=== PATIENT | female | born 1950 | race Caucasian/White ===

== ENCOUNTER 2021-06-11 10:33 | Outpatient (REF) | payer MEDICARE, SELFPAY ==
--- NOTE | ~2021-06-11 | MM_ITS ---
EXAMINATION: MM SCREENING DIGITAL BREAST TOMOSYNTHESIS, BILATERAL CLINICAL INFORMATION: Screening. Asymptomatic. The lifetime risk of breast cancer based on the Tyrer-Cuzick Model is 7.4%. COMPARISON: Mammography: December 19, 2018 and studies dating back to August 21, 2013 TECHNIQUE: Digital breast tomosynthesis is performed in both the craniocaudal and mediolateral oblique views along with computer-aided detection (CAD). Synthesized 2D images are generated from the tomosynthesis. FINDINGS: There are scattered areas of fibroglandular density (ACR BI-RADS breast composition Category b). There are no significant masses, abnormal calcifications, or other abnormalities. MM/MM tomosynthesis screening BI IMPRESSION: There are no significant changes from prior study. ASSESSMENT: BI-RADS 1: Negative RECOMMENDATION: Routine annual mammography screening. This patient's information was entered into a reminder system with a target due date for their next mammogram.
== END 2021-06-11 10:34 | disposition home or self-care (01) ==
LOC: HO.MAMMO 10:33
PROVIDERS: Visit Provider Family Medicine
DX: Z12.31 Encounter for screening mammogram for malignant neoplasm of breast (principal)
CPT/HCPCS: 77063; 77067

== ENCOUNTER 2022-07-14 11:28 | Outpatient (REF) | payer MEDICARE, SELFPAY ==
--- NOTE | ~2022-07-14 | MM_ITS ---
EXAMINATION: MM SCREENING DIGITAL BREAST TOMOSYNTHESIS, BILATERAL CLINICAL INFORMATION: Screening. Asymptomatic. The lifetime risk of breast cancer based on the Tyrer-Cuzick Model is 7%. COMPARISON: Mammography: 06/11/2021, 12/19/2018, 12/02/2017 TECHNIQUE: Digital breast tomosynthesis is performed in both the craniocaudal and mediolateral oblique views along with computer-aided detection (CAD). Synthesized 2D images are generated from the tomosynthesis. FINDINGS: There are scattered areas of fibroglandular density (ACR BI-RADS breast composition Category b). There are no significant masses, abnormal calcifications, or other abnormalities. Parenchymal pattern is similar to prior studies. There is no developing density or architectural abnormality. The axilla and skin contours are unremarkable. No significant changes. MM/MM tomosynthesis screening BI IMPRESSION: No mammographic evidence of malignancy. ASSESSMENT: BI-RADS 1: Negative RECOMMENDATION: Routine annual mammography screening. This patient's information was entered into a reminder system with a target due date for their next mammogram.
== END 2022-07-14 11:29 | disposition home or self-care (01) ==
LOC: HO.MAMMO 11:28
PROVIDERS: Visit Provider Family Medicine
DX: Z12.31 Encounter for screening mammogram for malignant neoplasm of breast (principal)
CPT/HCPCS: 77063; 77067

== ENCOUNTER 2023-07-18 10:17 | Outpatient (REF) | payer MEDICARE, SELFPAY | END 2023-07-18 10:18 | disposition home or self-care (01) | LOC: HO.MAMMO 10:17 | PROVIDERS: PCP Family Medicine; Visit Provider Family Medicine | DX: Z12.31 Encounter for screening mammogram for malignant neoplasm of breast (principal) | CPT/HCPCS: 77063; 77067 ==

== ENCOUNTER → 2023-07-18 10:30 | Outpatient (BNV) | payer MEDICARE, SELFPAY | PROVIDERS: PCP Family Medicine; Visit Provider Radiology Diagnostic Radiology | DX: Z12.31 Encounter for screening mammogram for malignant neoplasm of breast (principal) | CPT/HCPCS: 77063; 77067 ==

== ENCOUNTER 2024-07-20 10:29 | Outpatient (REF) | payer MEDICARE, SELFPAY ==
--- NOTE | ~2024-07-20 | MM_ITS ---
EXAMINATION: MM SCREENING DIGITAL BREAST TOMOSYNTHESIS, BILATERAL CLINICAL INFORMATION: Screening. Asymptomatic. COMPARISON: Mammography: Comparison is made with available priors TECHNIQUE: Digital breast mammography with tomosynthesis is performed in both the craniocaudal and mediolateral oblique views along with computer-aided detection (CAD). FINDINGS: There are scattered areas of fibroglandular density (ACR BI-RADS breast composition Category b). There are no significant masses, abnormal calcifications, or other abnormalities. MM/MM tomosynthesis screening BI IMPRESSION: No mammographic evidence of malignancy. ASSESSMENT: BI-RADS BI-RADS 1 - Negative RECOMMENDATION: Routine annual mammography screening. 1 year F/U This examination should not preclude the clinical evaluation of a suspicious palpable abnormality. This patient's information was entered into a reminder system with a target due date for their next mammogram. Electronically signed by: Svetlana Cardenas DO 07/26/2024 12:17 PM SERGIO
--- OUTSIDE RECORDS SUMMARY | 2024-07-25 07:22 | XMS_ITS ---
Author Organization [facility] Address [address] [place] [address] Care Team Providers Care Machine Engineer Name Role Phone Melia Mreino Primary Care Provider Unavailab Melia Gaines Unavailable [phone] REASON FOR VISIT RX for Pt Encounters Encounter Location Date Provider Diagnosis [address] [address] 07/06/2024 Melia Cabrera Plan Of Treatment No Information Progress Notes * Georgia WALLERDOB: [birth year] (74 yo F)Acc No.[id number]:07/06/2024 Patient:?Georgia WALLER :1950???Age:74 Y???Sex:Female Address:[address] [place], [address] * true * Date:? Generated for Printi ng/Famaryamg/eTransmitting on:?07/25/2024 07:22 AM EST
--- OUTSIDE RECORDS SUMMARY | 2024-07-25 07:23 | XMS_ITS ---
[facility] Address [address] [place] [address] Care Team Providers Care Regional Hr Manager Name Role Phone Melia Merino Primary Care Provider Unavailab Melia Gaines Unavailable [phone] Allergies Allergen (clinical drug ingredient) Drug/Non Drug Allergy documented on EMR Reaction Allergy Type Onset Date Status Lactose (Allergy) stomach upset Allergy Active REASON FOR VISIT Post-op Medications Medication SIG (Take, Route, Frequency, Duration) Notes Start Date End Date Status Rytary 23.75-95 MG 1 capsule Orally Thr ee times a day Active Ammonium Lactate 12 % 1 application Externally to affected areas of skin to feet except for between the toes Twice a day for 30 days Active Tylenol Active Propranolol HCl 60 MG as directed Orally Not-Taking rOPINIRole HCl 4 MG 1 tablet Orally Thre e times a day Not-Taking Azilect 1 MG Orally Once a day Active Pancreaze 20753 UNIT Orally Active AmLactin 12 % 1 application Externally Twice a day for 90 days 03/29/2022 Active Amantadine HCl 100 MG Orally Twice a day Active Allopurinol 100 MG Orally Once a day Active Diclofenac Sodium 1 % as directed Externally Active Carbidopa 25 MG 1 tablet Orally Thre e times a day Active Calcium 600+D3 Activ e Vitamin D3 125 MCG (5000 UT) 1 capsule Orally Once a day Active Celecoxib 100 MG 1 capsule with food Orally Once a day Active Omeprazole 20 MG 1 capsule 30 minutes before morning meal Orally Once a day Active Pramipexole Dihydrochloride 0.5 MG 1 tablet Orally Once a day Active Potassium Citrate ER 10 MEQ (1080 MG) 1 tablet with meals Orally Three times a day Active Social History Tobacco Use: Social History Observation Description Date Details (start date - stop date) Never Smoker NA - NA Tobacco Use/Smoking Question Answer Notes Are you a: nonsmoker Additional Findings: Tobacco Non-User Current no n-smoker Tobacco use other than smoking: Question Answer Notes Are you an other tobacco user? No Problems Problem Type SNOMED Code ICD Code Onset Dates Problem Status W/U Status Risk Notes Problem Acquired hallux valgus (46904920) Hallux valgus (acquired), left foot (M20.12) Active confirmed Vital Signs Height 5ft in 06/05/2024 Weight 115 lbs 06/05/2024 BMI 22.46 kg/m2 06/05/2024 Blood pressure systolic 110 mm Hg 06/05/20 24 Blood pressure diastolic 70 mm Hg 024 Encounters Encounter Location Date Provider Diagnosis [facility] [place] [address] [place] [address] 06/05/2024 Melia Cabrera Primary osteoarthrit is of left foot M19.072 and Hallux valgus (acquired), left foot M20.12 Assessments Encounter Date Diagnosis (ICD Code) Assessment Notes Treatment Notes Treatment Clinical Notes Section Notes 06/05/2024 Primary osteoarthritis of left foot (ICD-10 - M19.072) 06/05/2024 Hallux valgus (acquired), left foot (ICD-10 - M20.12) Plan Of Treatment Next Appt Details Follow Up: 2 Weeks, Reason: Procedure Notes * Category Sub-Category Detail Notes Dressing Change: Type: dry sterile anh ssing , incorporating digital splintage to maintain position , a light compressive dressing Topical: bacitacin applied Removal of: sutures performed wi th sterile forceps/suture scissors or #15 blade, area cleaned with alcohol prior to removal Progress Notes * Georgia WALLERDOB: [birth year] (74 yo F)Acc No.[id number]:06/05/2024 Progress Notes Patient:?Georgia Waller Provider:?Melia Cabrera DPM :1950???Age:74 Y???Sex:Female D ate:06/05/2024 Address:[address] [place], [place] [id number] Pcp:Melia Merino Subjective: * Chief Complaints: * ???Post-op * HPI: ???Post-op:?The patient presents for post-op of?Left Mod Collazo , Bunionectomy.?Date of Surgery?:?05/23/2024 ?Current symptoms include?Pt denies fever, chills, nausea, calf pain, SOB, or increased anxiety, Pt states pain under control.? Pt presents WB with surgical shoe, relates some increased pain in last couple days, but admits has not been staying off of foot like recommeneded. * ROS:?General/Constitutional:?Nausea?denies, denies.?Vomiting?denies, denies.?Hunger Thirst?denies, denies.?Loss appetite?denies, denies.?Chills?denies, denies.?Fatigue?denies, denies.?Fever?denies, denies.?Night Sweats denies, denies.?Unexplained weight loss?denies, denies.?Unexplained weight gain?denies, denies.?HEENTM:?Dentures?denies, denies.?Dizziness?denies, denies.?Glasses/contacts?denies, denies.?Retinopathy?denies, denies.?Blurred/double vision?denies, denies.?TMJ?denies, denies.?Discharge/drainage?denies, denies.?Implants?denies, denies.?Sore throat?denies, denies.?Dental implants?denies, denies.?Hard of hearing ?denies, denies.?Difficulty chewing/swallowing/speaking?denies, denies.?Nose bleeds?denies, denies.?Sore mouth?denies, denies.?Respiratory:?On Oxygen?denies, denies.?Pneumonia/pleurisy?denies, denies.?Bronchitis?denies, denies.?Emphysema?denies, denies.?Coughing?denies, denies.?Cough blood?denies, denies.?Shortness of breath?denies, denies.?Wheezing?denies, denies.?Cardiovascular:?Pacemaker?denies, denies.?MVP?denies, denies.?WPW?denies, denies.?CHF?denies, denies.?Heart attack?denies, denies.?Septal defect?denies, denies.?Rapid beat?denies, denies.?Chest pain ?denies, denies.?Atrial Fib.?denies, denies.?Murmur/Palpitations?denies, denies.?Gastrointestinal:?Hemorrhoids?denies, denies.?Stomach/Abdominal pain?admits, admits.?Dark blood stool?denies, denies.?Irritable bowel ?admits, admits.?Constipation?denies, denies.?Diarrhea?admits, admits.?Hematology:?Swelling?denies, denies.?Clots?denies, denies.?Varicose Veins?denies, denies.?Bruising?denies, denies.?Bleeding problem?denies, denies.?Genitourinary:?Blood urine?denies, denies.?Frequent/Painfu/urination/bladder control?denies, denies.?Kidney stones?admits, admits.?Infection (UTI)?denies, denies.?Nephropathy?admits, admits.?sex trans dis (STD)?denies, denies.?Prostate?denies, denies.?Musculoskeletal:?Hammertoes?admits, admits.?Bunions?admits, admits.?Back Pain?denies, denies.?Muscle Cramps/ Resting?denies, denies.?Muscle cramps / walking?denies, denies.?Generalized aches and pains?admits, admits.?Weakness?denies, denies.?Integ.:?Horan?denies, denies.?Scars?denies, denies.?Corns/calluses?admits, admits.?Ingrown nails?denies, denies.?Painful nails?denies, denies.?Open Sores?denies, denies.?Rashes?denies, denies.?Neurologic:?Difficulty sleeping?admits, admits.?Brain disorder?denies, denies.?Numbness?denies, denies.?Balance trouble?denies, denies.?Confusion?denies, denies.?Fainting/blackouts?denies, denies.?Tingling?denies, denies.?Tremors?admits, admits.? * Medical History:? * Surgical History:?Appendecto my 1976Whipple Procedure 2010Bunionectomy - Right 2007[facility] Procedure 2002uterus surgery 2015kidney stones 05/03/2019modified collazo,bunionectomy left P/B 05/23/2024 * Hospitalization/Major Diagno stic Procedure:?Denies Past Hospitalization * Family History:?Mother: dece ased, kidney disease, foot problems, diagnosed with Other malignant neoplasm of unspecified site.?Father: alive.?Maternal Grand Father: diagnosed with Diabetic - NIDDM.? * Social History:?Tobacco Use:?Tobacco Use/Smoking?Are you a:?nonsmoker ?Additional Findings: Tobacco Non-User?Current non-smoker ?Tobacco use other than smoking?Are you an other tobacco user??No * Medications:?TakingTylenol P ramipexole Dihydrochloride 0.5 MG Tablet 1 tablet Orally Once a dayPotassium Citrate ER 10 MEQ (1080 MG) Tablet Extended Release 1 tablet with meals Orally Three times a dayOmeprazole 20 MG Capsule Delayed Release 1 capsule 30 minutes before morning meal Orally Once a dayDiclofenac Sodium 1 % Gel as directed Externally Vitamin D3 125 MCG (5000 UT) Capsule 1 capsule Orally Once a dayCelecoxib 100 MG Capsule 1 capsule with food Orally Once a dayCarbidopa 25 MG Tablet 1 tablet Orally Three times a dayCalcium 600+D3 Allopurinol 100 MG Tablet Orally Once a dayAmLactin 12 % Lotion 1 application Externally Twice a dayAmantadine HCl 100 MG Tablet Orally Twice a dayAzilect 1 MG Tablet Orally Once a dayPancreaze 24119 UNIT Capsule Delayed Release Particles Orally Rytary 23.75-95 MG Capsule Extended Release 1 capsule Orally Three times a dayAmmonium Lactate 12 % Cream 1 application Externally to affected areas of skin to feet except for between the toes Twice a dayTaking Tylenol Taking Pramipexole Dihydrochloride 0.5 MG Tablet 1 tablet Orally Once a dayTaking Potassium Citrate ER 10 MEQ (1080 MG) Tablet Extended Release 1 tablet with meals Orally Three times a dayTaking Omeprazole 20 MG Capsule Delayed Release 1 capsule 30 minutes before morning meal Orally Once a dayTaking Diclofenac Sodium 1 % Gel as directed Externally Taking Vitamin D3 125 MCG (5000 UT) Capsule 1 capsule Orally Once a dayTaking Celecoxib 100 MG Capsule 1 capsule with food Orally Once a dayTaking Carbidopa 25 MG Tablet 1 tablet Orally Three times a dayTaking Calcium 600+D3 Taking Allopurinol 100 MG Tablet Orally Once a dayTaking AmLactin 12 % Lotion 1 application Externally Twice a dayTaking Amantadine HCl 100 MG Tablet Orally Twice a dayTaking Azilect 1 MG Tablet Orally Once a dayTaking Pancreaze 06670 UNIT Capsule Delayed Release Particles Orally Taking Rytary 23.75-95 MG Capsule Extended Release 1 capsule Orally Three times a dayTaking Ammonium Lactate 12 % Cream 1 application Externally to affected areas of skin to feet except for between the toes Twice a dayNot-Taking/PRNPropranolol HCl 60 MG Tablet as directed Orally rOPINIRole HCl 4 MG Tablet 1 tablet Orally Three times a dayMedication List reviewed and reconciled with the patientNot-Taking/PRN Propranolol HCl 60 MG Tablet as directed Orally Not-Taking/PRN rOPINIRole HCl 4 MG Tablet 1 tablet Orally Three times a dayMedication List reviewed and reconciled with the patient * Allergies:?Lactose (Allergy) : stomach upset - Allergyyes[Allergies Verified] Objective: * Vitals:?Ht: 5ft, Wt:115, BMI :22.46, Shoe size: 8, BP:110/70 mm Hg, Ht-cm: 152.4 cm, Wt-k.16 kg. * Examination: ???Dressing: ?APPEARANCE?Clean, dry, and intact, with dry to moist blood present, no malodor.?Dermatologic: ?SURGICAL SITE?Skin and Sutures intact, Incision edges are well aligned and adhered, CFT intact , No signs or symptoms consistent with infection , (+), Mild LESS?Pain on palpation/ecchymosis/edema, (-), erythema/hematoma/dehiscence/cellulitis.?Orthopedic: ?BUNION:?alignment of toe is rectus in all plains, ROM is guarded due to discomfort , LEFT.? Assessment: * Assessment: 1.?Primary osteoarthritis of left foot - M19.072?2.?Hallux valgus (acquired), left foot - M20.12 (Primary)? Plan: * Treatment: * Procedures:?Dressing Change::?Type:?dry sterile dressing , incorporating digital splintage to maintain position , a light compressive dressing.?Topical:?bacitacin applied.?Removal of:?sutures performed with sterile forceps/suture scissors or #15 blade, area cleaned with alcohol prior to removal.? * Procedure Codes:? * Preventive Medicine:? ??Counseling:?Post-op:?I reviewed with the patient the usual surgical post-op course. The patient is to call with any questions/complications, and will follow-up as scheduled, perform ROM (3-4 times a day; 20-25 reps each) exercises at the foot joint and ankle, return to accom firm-soled shoe for stability and support, gradually increase activity to tolerance, Pt to continue to ice and elevate foot to help with post op swelling and pain, Pt can begin showering per usual starting tomorrow, can apply abx ointment to incisions to help with scarring.? * Follow Up:?2 Weeks * Images: * Sign off status: Completed true * Provider:?Melia Cabrera DPM Date:? Generated for Papa carr/Jill/Daria on:?07/25/2024 07:22 AM EST History and Physical Notes * HPI (History of Present Illness) Category Sub-Category Detail Notes Category Not es Post-op The patient presents for post-op of Left Mod Collazo , Bunionectomy Pt presents WB with surgical shoe, relates some increased pain in last couple days, but admits has not been staying off of foot like recommeneded Current symptoms include Pt denies fever , chills, nausea, calf pain, SOB, or increased anxiety, Pt states pain under control Date of Surgery :: 05/23/2024 Examination Category Sub-Category Detail Notes Category Not es Dermatologic SURGICAL SITE Skin and Sutures intact, Incision edges are well aligned and adhered, CFT intact , No signs or symptoms consistent with infection , (+), Mild LESS Pain on palpation/ecchymosis/edema, (-), erythema/hematoma/dehiscence/cellulitis Orthopedic BUNION: alignment of toe is rectus in all plains, ROM is guarded due to discomfort , LEFT Dressing APPEARANCE Clean, dry, and intact, with dry to moist blood present, no malodor
--- OUTSIDE RECORDS SUMMARY | 2024-07-25 07:23 | XMS_ITS ---
[facility] Address [address] [place] [address] Care Team Providers Care Grill Cook Name Role Phone Melia Merino Primary Care Provider Unavailab Melia Gaines Unavailable [phone] Allergies Allergen (clinical drug ingredient) Drug/Non Drug Allergy documented on EMR Reaction Allergy Type Onset Date Status Lactose (Allergy) stomach upset Allergy Active REASON FOR VISIT Post-op Medications Medication SIG (Take, Route, Frequency, Duration) Notes Start Date End Date Status Rytary 23.75-95 MG 1 capsule Orally Thr ee times a day Active Pancreaze 58564 UNIT Orally Active Propranolol HCl 60 MG as directed Orally Not-Taking Ammonium Lactate 12 % 1 application Externally to affected areas of skin to feet except for between the toes Twice a day for 30 days Active rOPINIRole HCl 4 MG 1 tablet Orally Thre e times a day Not-Taking Azilect 1 MG Orally Once a day Active Amantadine HCl 100 MG Orally Twice a day Active Calcium 600+D3 Activ e AmLactin 12 % 1 application Externally Twice a day for 90 days 03/29/2022 Active Allopurinol 100 MG Orally Once a day Active Omeprazole 20 MG 1 capsule 30 minutes before morning meal Orally Once a day Active Vitamin D3 125 MCG (5000 UT) 1 capsule Orally Once a day Active Diclofenac Sodium 1 % as directed Externally Active Carbidopa 25 MG 1 tablet Orally Thre e times a day Active Celecoxib 100 MG 1 capsule with food Orally Once a day Active Pramipexole Dihydrochloride 0.5 MG 1 tablet Orally Once a day Active Tylenol Active Potassium Citrate ER 10 MEQ (1080 MG) 1 tablet with meals Orally Three times a day Active Physical Therapy . . Post op bunionecto my for hallux limitus, work on ROM monility Left 1st MPJ, massage and gait training 2-3x/week 06/19/2024 Active Social History Tobacco Use: Social History Observation Description Date Details (start date - stop date) Never Smoker NA - NA Tobacco Use/Smoking Question Answer Notes Are you a: nonsmoker Additional Findings: Tobacco Non-User Current no n-smoker Alcohol Screen Question Answer Notes Did you have a drink contain ing alcohol in the past year? Yes How often did you have a dri nk containing alcohol in the past year? 4 or more times a week (4 points) Points 4 Interpretation Positive Tobacco use other than smoking: Question Answer Notes Are you an other tobacco user? No Vital Signs Height 5ft in 06/19/2024 Weight 115 lbs 06/19/2024 BMI 22.46 kg/m2 06/19/2024 Blood pressure systolic 110 mm Hg 06/19/20 24 Blood pressure diastolic 70 mm Hg 024 Encounters Encounter Location Date Provider Diagnosis [facility] [address] [address] 06/19/2024 Melia Cabrera Primary osteoarthrit is of left foot M19.072 and Hallux valgus (acquired), left foot M20.12 Assessments Encounter Date Diagnosis (ICD Code) Assessment Notes Treatment Notes Treatment Clinical Notes Section Notes 06/19/2024 Primary osteoarthritis of left foot (ICD-10 - M19.072) 06/19/2024 Hallux valgus (acquired), left foot (ICD-10 - M20.12) Plan Of Treatment Medication Medication Name Sig Start Date Stop Date Notes Physical Therapy . . Post op bunionecto my for hallux limitus, work on ROM monility Left 1st MPJ, massage and gait training 2-3x/week 06/19/2024 Next Appt Details Follow Up: prn, Reason: Progress Notes * Georgia WALLERDOB: [birth year] (74 yo F)Acc No.[id number]:06/19/2024 Progress Notes Patient:?Georgia Waller Provider:?Melia Cabrera DPM :1950???Age:74 Y???Sex:Female D ate:06/19/2024 Address: [address] [place], [place] Pcp:Melia Merino Subjective: * Chief Complaints: * ???Post-op * HPI: ???Post-op:?The patient presents for post-op of?Left Mod Collazo , Bunionectomy.?Date of Surgery?:?05/23/2024 ?Current symptoms include?Pt denies fever, chills, nausea, calf pain, SOB, or increased anxiety, Pt states pain under control.? Pt presents WB with regular shoe, relates some continued swelling, but has been slowly increasing her activity. * Medical History:? * Surgical History:?Appendecto my [...] than smoking?Are you an other tobacco user??No ???Drugs/Alcohol:?Drugs?Have you used drugs other than those for medical reasons in the past 12 months??No ?Alcohol Screen?Did you have a drink containing alcohol in the past year??Yes ?How often did you have a drink containing alcohol in the past year??4 or more times a week (4 points) ?Points?4 ?Interpretation?Positive ???Miscellaneous:?no Caffeine. ?Children: yes, 2. ?Exercise: yes, walking , 3-4 times per week. ?Living with: spouse. ?Marital status: . ?Occupation: Retired, Teacher. * Medications:?TakingTylenol P ramipexole Dihydrochloride 0.5 MG [...] 1 MG Tablet Orally Once a dayPancreaze 52429 UNIT Capsule Delayed Release Particles Orally Rytary [...] MG Tablet Orally Once a dayTaking Pancreaze 75105 UNIT Capsule Delayed Release Particles Orally Taking [...] stomach upset - Allergyyes[Allergies Verified] Objective: * Vitals:?Ht:5ft, Wt:115, BMI: 22.46, Shoe size:8, BP:110/70 mm Hg, Ht-cm: 152.4 cm, Wt-k.16 kg. * Examination: ???Dermatologic: ?SURGICAL SITE?Incision edges are well aligned and adhered, CFT intact , No signs or symptoms consistent with infection , (+), Mild? LESS?Pain on palpation/ no?ecchymosis/mild?edema, (-), erythema/hematoma/dehiscence/cellulitis.?Orthopedic: ?BUNION:?alignment of toe is rectus in all plains, ROM is about 35 degrees?, LEFT.? Assessment: * Assessment: 1.?Primary osteoarthritis of left foot - M19.072?2.?Hallux valgus (acquired), left foot - M20.12 (Primary)? Plan: * Treatment: * Procedure Codes:? * Preventive Medicine:? ??Counseling:?Post-op:?I [...] help with post op swelling and pain, discussed the need to start Physical Therapy and the importance it will play in the pts recovery.? * Follow Up:?prn * Images: * Sign off status: Completed true * Provider:?Melia Cabrera, RETA Date:?12/2023 Generated for Papa carr/Jill/Daria on:?07/25/2024 07:22 AM EST History and Physical Notes * HPI (History of Present Illness) Category Sub-Category Detail Notes Category Not es Post-op The patient presents for post-op of Left Mod Collazo , Bunionectomy Pt presents WB with regular shoe, relates some continued swelling, but has been slowly increasing her activity Current symptoms include Pt denies fever , chills, nausea, calf pain, SOB, or increased anxiety, Pt states pain under control Date of Surgery :: 05/23/2024 Examination Category Sub-Category Detail Notes Category Not es Dermatologic SURGICAL SITE Incision edges a re well aligned and adhered, CFT intact , No signs or symptoms consistent with infection , (+), Mild LESS Pain on palpation/ no ecchymosis/mild edema, (-), erythema/hematoma/dehiscence/cellulitis Orthopedic BUNION: alignment of toe is rectus in all plains, ROM is about 35 degrees , LEFT
--- OUTSIDE RECORDS SUMMARY | 2024-07-25 07:23 | XMS_ITS | Patient Health Record ---
Author Organization [facility] Address [address] [place] [address] Care Team Providers Care Manufacturing Support Engineer Name Role Phone Melia Merino Primary Care Provider Unavailab Melia Gaines Unavailable [phone] Allergies Allergen (clinical drug ingredient) Drug/Non Drug Allergy documented on EMR Reaction Allergy Type Onset Date Status Lactose (Allergy) stomach upset Allergy Active Reason For Referral No Information Medications Medication SIG (Take, Route, Frequency, Duration) Notes Start Date End Date Status Pramipexole Dihydrochloride 0.5 MG 1 tablet Orally Once a day Active Azilect 1 MG Orally Once a day Active Tylenol Active Amantadine HCl 100 MG Orally Twice a day Active Omeprazole 20 MG 1 capsule 30 minutes before morning meal Orally Once a day Active Rytary 23.75-95 MG 1 capsule Orally Thr ee times a day Active Potassium Citrate ER 10 MEQ (1080 MG) 1 tablet with meals Orally Three times a day Active Pancreaze 69562 UNIT Orally Active Vitamin D3 125 MCG (5000 UT) 1 capsule Orally Once a day Active Propranolol HCl 60 MG as directed Orally Not-Taking Diclofenac Sodium 1 % as directed Externally Active Ammonium Lactate 12 % 1 application Externally to affected areas of skin to feet except for between the toes Twice a day for 30 days Active Carbidopa 25 MG 1 tablet Orally Thre e times a day Active Celecoxib 100 MG 1 capsule with food Orally Once a day Active rOPINIRole HCl 4 MG 1 tablet Orally Thre e times a day Not-Taking Physical Therapy . . Post op bunionecto my for hallux limitus, work on ROM monility Left 1st MPJ, massage and gait training 2-3x/week 06/19/2024 Active Calcium 600+D3 Activ e AmLactin 12 % 1 application Externally Twice a day for 90 days 03/29/2022 Active Allopurinol 100 MG Orally Once a day Active Immunizations Vaccine Route Administration Date Status Commurszula nts COVID-19 Pfizer BioNTech Vaccine Unknown 06/12/2021 Administered First Dose: 10/30/2020 Second Dose:11/20/2020 Social History Tobacco Use: Social History Observation [...] Problem Status W/U Status Risk Notes Problem Tinea unguium (714339779) Tinea unguium (B35.1) Active confirmed Problem Acquired hallux valgus (80144889) Hallux valgus (acquired), left foot (M20.12) Active confirmed Problem Acquired hallux valgus (18666098) Hallux valgus (acquired), left foot (M20.12) Active confirmed Problem Acquired hallux valgus (11977246) Hallux valgus (acquired), right foot (M20.11) Active confirmed Problem [id number] 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) Active confirmed Vital Signs Blood pressure diastolic 70 mm Hg 06/19/2024 Height 5ft in 06/19/2024 Blood pressure systolic 110 mm Hg 06/19/2024 Weight 115 lbs 06/19/2024 BMI 22.46 kg/m2 06/19/2024 Encounters Encounter Location Date Provider Diagnosis [facility] ([place]/[address] [address] 05/23/2024 Melia Cabrera [facility] [place] [address] [place] [address] 05/09/2024 Melia Cabrera Hallux valgus, left M20.12 ; Primary osteoarthritis of left foot M19.072 and Pain in left foot M79.[address] [address] 05/29/2024 Melia Cabrera Xerosis of skin L85. 3 ; Hallux valgus (acquired), left foot M20.12 and Primary osteoarthritis of left foot M19.[address] [address] 06/05/2024 Melia Cabrera Primary osteoarthrit is of left foot M19.072 and Hallux valgus (acquired), left foot M20.[address] [address] 06/19/2024 Melia Cabrera Primary osteoarthrit is of left foot M19.072 and Hallux valgus (acquired), left foot M20.[address] [address] 09/20/2023 Melia Cabrera [facility] [address] 05/24/2024 Melia Cabrera [address] [address] 06/01/2024 Melia Cabrera [address] [address] 07/06/2024 Melia Cabrera Assessments Encounter Date Diagnosis (ICD Code) Assessment Notes Treatment Notes Treatment Clinical Notes Section Notes 05/09/2024 Hallux valgus, left (ICD-10 - M20.12) 05/29/2024 Hallux valgus (acquired), left foot (ICD-10 - M20.12) 05/29/2024 Xerosis of skin (ICD-10 - L85.3) 06/05/2024 Primary osteoarthritis of left foot (ICD-10 - M19.072) 06/19/2024 Primary osteoarthritis of left foot (ICD-10 - M19.072) 05/09/2024 Primary osteoarthritis of left foot (ICD-10 - M19.072) 06/19/2024 Hallux valgus (acquired), left foot (ICD-10 - M20.12) 05/29/2024 Primary osteoarthritis of left foot (ICD-10 - M19.072) 06/05/2024 Hallux valgus (acquired), left foot (ICD-10 - M20.12) 05/09/2024 Pain in left foot (ICD-10 - M79.672) Plan Of Treatment Pending Test Test Name Order Date X ray : Foot, left 3V 07/01/2023 X ray : Foot, left 3V 05/09/2024 [id number] NAIL, 6 OR MORE 04/01/2023 [id number] NAIL, 6 OR MORE 06/11/2022 [id number] NAIL, 6 OR MORE 09/21/2022 25583-WVTANSF NAIL, 6 OR MORE 12/31/2022 96288-[id number] NAIL, 6 OR MORE 09/13/2017 [id number] NAIL, 6 OR MORE 01/24/2018 80750-OUVAMBU NAIL, 6 OR MORE 05/02/2018 [id number] NAIL, 6 OR MORE 12/28/2016 63119-CNQKJEG NAIL, 6 OR MORE 03/15/2017 [id number] NAIL, 6 OR MORE 09/05/2018 [id number] NAIL, 6 OR MORE 12/05/2018 [id number] NAIL, 6 OR MORE 06/15/2019 76993-HPXDTOU NAIL, 6 OR MORE 09/04/2019 [id number] NAIL, 6 OR MORE 06/12/2021 11924-STHEFPA NAIL, 6 OR MORE 12/11/2021 [id number] NAIL, 6 OR MORE 03/12/2022 21362-Mdulktun Plate 03/12/2022 99349-Jyamgonk Plate 09/04/2019 73716-Iwkknutg Plate 09/13/2017 80331-Jwgcdzex Plate 12/31/2022 65624 - Tenotomy, open flexor 06/25/2022 49701 - Tenotomy, open flexor 11/02/2019 01564 - Tenotomy, open flexor 12/26/2018 55439 - Tenotomy, open flexor 05/23/2018 87026 - TENOTOMY, OPEN, EXTENSOR 020 Insurance Providers Payer Name Payer Address Payer Phone Subscriber Number Group Number Insured Name Patient Relationship to Insured Coverage Start Date Coverage End Date Medicare National [employer] [address] [place] [address] [id number] [place] Haji Self - patient is the insured 6 [employer] [address] [place] [address] [phone] [id number] Haji FrancineGeorgia Self - patient is the insured Medical (General) History Medical History History ICD Code Epilepsy Hiatal hernia Kidney stones - Uric acid Parkinsons disease Measles Mumps Chicken pox Joint implants/screws (Toe) Pancreas CA cyst Surgical History Surgery Date(Month/Year) Appendectomy 1975 Whipple Procedure 2010 Bunionectomy - Right 2006 Sparc Procedure 2001 uterus surgery 2015 kidney stones 05/03/2019 modified cande collazoctirwin left P/B 1 Hospitalization History Reason Date(Month/Year)
== END 2024-07-20 10:30 | disposition home or self-care (01) ==
LOC: HO.MAMMO 10:29
PROVIDERS: PCP Family Medicine; Visit Provider Family Medicine
DX: Z12.31 Encounter for screening mammogram for malignant neoplasm of breast (principal)
CPT/HCPCS: 77063; 77067

== ENCOUNTER → 2024-07-20 10:30 | Outpatient (BNV) | payer MEDICARE, SELFPAY | PROVIDERS: PCP Family Medicine; Visit Provider Internal Medicine | DX: Z12.31 Encounter for screening mammogram for malignant neoplasm of breast (principal) | CPT/HCPCS: 77063; 77067 ==

== ENCOUNTER 2025-07-25 09:59 | Outpatient (REF) | payer MEDICARE, SELFPAY ==
--- NOTE | ~2025-07-25 | MM_ITS ---
EXAMINATION: MM SCREENING DIGITAL BREAST TOMOSYNTHESIS, BILATERAL CLINICAL INFORMATION: Screening. Asymptomatic. COMPARISON: Mammography: Comparison is made with available priors TECHNIQUE: Digital breast mammography with tomosynthesis is performed in both the craniocaudal and mediolateral oblique views along with computer-aided detection (CAD). FINDINGS: There are scattered areas of fibroglandular density. There are no significant masses, abnormal calcifications, or other abnormalities. MM/MM tomosynthesis screening BI IMPRESSION: No mammographic evidence of malignancy. ASSESSMENT: BI-RADS Category 1: Negative RECOMMENDATION: Routine annual mammography screening. 1 year F/U This examination should not preclude the clinical evaluation of a suspicious palpable abnormality. This patient's information was entered into a reminder system with a target due date for their next mammogram. Electronically signed by: Svetlana Cardenas DO 07/26/2025 07:01 PM SERGIO
== END 2025-07-25 10:00 | disposition home or self-care (01) ==
LOC: HO.MAMMO 09:59
PROVIDERS: PCP Family Medicine; Visit Provider Family Medicine
DX: Z12.31 Encounter for screening mammogram for malignant neoplasm of breast (principal)
CPT/HCPCS: 77063; 77067

== ENCOUNTER → 2025-07-25 10:00 | Outpatient (BNV) | payer MEDICARE, SELFPAY | PROVIDERS: PCP Family Medicine; Visit Provider Internal Medicine | DX: Z12.31 Encounter for screening mammogram for malignant neoplasm of breast (principal) | CPT/HCPCS: 77063; 77067 ==